=== PATIENT | female | born 1940 | race Two or more races ===

== ENCOUNTER 2017-10-01 15:32 | Emergency (ER) | payer OTHER ==
[~2017-10-01] VITALS: Ht 157.5 cm; Wt 99.7 kg
[2017-10-01] MEDS ORDERED: SODIUM CHLORIDE 0.9% 1,000 ML IV ONE (16:08)
[2017-10-01] MEDS ORDERED: ADENOSINE 6 MG/2 ML ONE (16:19)
[2017-10-01] MEDS ORDERED: HYDROmorphone 2 MG/ML, 1ML ONE (16:20)
[2017-10-01] MEDS ORDERED: ONDANSETRON 2MG/ML, 2ML IVPush ONE (16:30)
[2017-10-01] MEDS ORDERED: MORPHINE SULFATE 4 MG/ML, 1ML IVPush PRN (16:30)
[2017-10-01] MEDS ORDERED: SODIUM CHLORIDE FLUSH 10ML SYR IVF ONE (16:30)
[2017-10-01] MEDS ORDERED: HYDROmorphone 2 MG/ML, 1ML IVPush ONE (16:30)
[2017-10-01 16:35] LABS: HEMATOCRIT 46.3 % (34.6-47.8); HEMOGLOBIN 16.1 g/dL (11.7-16.4); WHITE BLOOD COUNT 9.1 x10^3/uL (3.4-10)
[2017-10-01 16:45] LABS: BLOOD UREA NITROGEN 15 mg/dL (7-18)
[2017-10-01 17:01] LABS: IS PT STATUS REG ER OR PRE ER? YES
[2017-10-01 17:53] VITALS: BP 164/92
[2017-10-01] MEDS ORDERED: ADENOSINE 6 MG/2 ML IVPush ONE (18:00)
== END 2017-10-01 19:45 | disposition home or self-care (01) ==
LOC: ED 18:35
DX: S42.202A Unspecified fracture of upper end of left humerus, initial encounter for closed fracture (principal); S80.01XA Contusion of right knee, initial encounter; I47.1 Supraventricular tachycardia; E03.9 Hypothyroidism, unspecified; I10 Essential (primary) hypertension; W01.0XXA Fall on same level from slipping, tripping and stumbling without subsequent striking against object, initial encounter; Y93.89 Activity, other specified; Y92.89 Other specified places as the place of occurrence of the external cause; Y99.8 Other external cause status
CPT/HCPCS: 36415; 73060; 73080; 73564; 80048; 82040; 83735; 84443; 84484; 85025; 85610; 93005; 96374; 96375; 99285; J0153; J1170